=== PATIENT | male | born 1960 | race Caucasian/White ===

== ENCOUNTER → 2018-09-02 | Outpatient (CLI) | payer MEDICARE, OTHER ==
[~2018-09-02] MED LIST: ATEN50TA PO; CAL1TABL5 PO; FURO20 PO; THYROID; [UNRECOGNIZED DRUG - CODE] PO
[2018-09-03 12:20] LABS: CHOL/HDL RATIO 2.3 (4.2-7.3)
== END | disposition home or self-care (01) ==
LOC: LABMN 11:00
PROVIDERS: ATTEND Internal Medicine
DX: F25.0 Schizoaffective disorder, bipolar type (principal); F31.9 Bipolar disorder, unspecified; K21.9 Gastro-esophageal reflux disease without esophagitis; I10 Essential (primary) hypertension; E03.9 Hypothyroidism, unspecified; Z88.0 Allergy status to penicillin
CPT/HCPCS: 87340

== ENCOUNTER → 2018-09-12 | Outpatient (CLI) | payer MEDICARE, OTHER | END | disposition home or self-care (01) | LOC: LABMN 11:25 | PROVIDERS: ATTEND Internal Medicine | DX: F25.0 Schizoaffective disorder, bipolar type (principal) | CPT/HCPCS: 87340 ==

== ENCOUNTER → 2018-11-08 | Outpatient (CLI) | payer MEDICARE, OTHER | END | disposition home or self-care (01) | LOC: LABMN 18:04 | PROVIDERS: ATTEND Internal Medicine | DX: F25.0 Schizoaffective disorder, bipolar type (principal); I10 Essential (primary) hypertension; E78.5 Hyperlipidemia, unspecified; K21.9 Gastro-esophageal reflux disease without esophagitis; Z87.891 Personal history of nicotine dependence; Z79.899 Other long term (current) drug therapy; Z88.0 Allergy status to penicillin | CPT/HCPCS: 80074; 86708 ==